=== PATIENT | female | born 1950 | race Caucasian/White ===

== ENCOUNTER 2016-10-02 10:45 | Outpatient (CLI) | payer OTHER, MEDICARE ==
--- NOTE | 2016-10-02 13:37 | DIAGNOSTIC IMAGING REPORT ---
PROCEDURE: US BREAST ULTRASOUND - RIGHT INDICATION: BREAST SCREENING TECHNIQUE: Beltran scale and color Doppler sonographic images of the right breast were acquired. COMPARISON: None. FINDINGS: Sonographically normal breast tissue. Fairly dense fibroglandular pattern in the periareolar region circumferentially. No suspicious cyst, solid mass, calcification, or unusual shadowing. No abnormal hypervascularity in the tissue. IMPRESSION: 1. Fairly dense fibroglandular tissue in the anterior right breast. 2. No sonographic evidence of malignancy in the given images. RESULT CODE: 1- Negative. A. A negative report should not delay biopsy if a dominant or clinically suspicious mass is present. 10-15% of cancers are not identified by x-ray. B. A negative report may reinforce clinical impression. C. Adenosis and dense breasts may obscure an underlying neoplasm. D. False positive reports average 6-10%. E.. A yearly screening mammogram is recommended. A reminder letter will be scheduled.
--- NOTE | 2016-10-02 13:40 | DIAGNOSTIC IMAGING REPORT ---
PROCEDURE: US BREAST ULTRASOUND - LEFT INDICATION: BREAST SCREENING TECHNIQUE: Beltran scale and color Doppler sonographic images of the left breast were acquired. COMPARISON: None. FINDINGS: Heterogeneous, fairly dense fibroglandular tissue in the periareolar region circumferentially with particular heterogeneity in the 2 o'clock position (area of patient's left breast lump). No suspicious cyst, solid mass, calcification, or unusual shadowing. No abnormal hypervascularity in the tissue. IMPRESSION: 1. Heterogeneous, dense fibroglandular tissue in the anterior left breast with particular heterogeneity in the area of palpable abnormality. No definite sonographic evidence of malignancy. 2. Left breast diagnostic mammogram was encouraged but the patient declined. 3. Follow-up left breast ultrasound in 6 months, and interim clinical follow-up is needed, to document stability is recommended. Findings and recommendations were discussed with the patient. RESULT CODE: 3- Probably benign. A. A negative report should not delay biopsy if a dominant or clinically suspicious mass is present. 10-15% of cancers are not identified by x-ray. B. A negative report may reinforce clinical impression. C. Adenosis and dense breasts may obscure an underlying neoplasm. D. False positive reports average 6-10%. E.. A yearly screening mammogram is recommended. A reminder letter will be scheduled.
== END 2016-10-02 23:00 ==
LOC: US SRH 10:45
DX: Z12.31 Encounter for screening mammogram for malignant neoplasm of breast (principal)